=== PATIENT | male | born 2000 | race American Indian/Alaskan Native ===

== ENCOUNTER 2022-01-16 22:25 | Emergency (ER) | payer MEDICAID, OTHER | END 2022-01-17 03:30 | LOC: JD.ED 22:25 | DX: F32.A Depression, unspecified (principal); F29 Unspecified psychosis not due to a substance or known physiological condition; R45.851 Suicidal ideations; F17.210 Nicotine dependence, cigarettes, uncomplicated | CPT/HCPCS: 36415; 80053; 80143; 80179; 80306; 80307; 81001; 84443; 85025; 99284 ==

== ENCOUNTER 2022-01-18 12:40 | Emergency (ER) | payer OTHER ==
[2022-01-18] MEDS ORDERED: OLANZapine 10 MG Vial IM ONE (18:41)
== END 2022-01-18 19:55 | disposition home or self-care (01) ==
LOC: JD.ED 12:40
DX: R44.0 Auditory hallucinations (principal); F17.210 Nicotine dependence, cigarettes, uncomplicated; Z86.16 Personal history of COVID-19
CPT/HCPCS: 96372; 99284; J3490

== ENCOUNTER 2022-05-01 21:24 | Emergency (ER) | payer OTHER ==
[2022-05-02] MEDS ORDERED: ARIPiprazole 5 MG Tab PO ONE (11:20)
== END 2022-05-02 15:14 ==
LOC: JD.ED 21:24
DX: F20.9 Schizophrenia, unspecified (principal); Z79.899 Other long term (current) drug therapy; Z20.822 Contact with and (suspected) exposure to COVID-19
CPT/HCPCS: 36415; 80053; 80143; 80179; 80306; 80307; 81003; 84443; 85025; 85610; 85730; 86140; 99284; 99285; U0002

== ENCOUNTER 2022-11-30 20:28 | Emergency (ER) | payer OTHER ==
[2022-11-30 21:19] LABS: BASOPHILS ABSOLUTE AUTO 0.03 K/mm3 (0.01-0.08); BASOPHILS PERCENT AUTO 0.3 % (0.1-1.2); EOSINOPHILS ABSOLUTE AUTO 0.15 K/mm3 (0.04-0.54); EOSINOPHILS PERCENT AUTO 1.6 (0.8-7.0); HEMOGLOBIN 14.7 gm/dl (13.7-17.5); IMMATURE GRAN ABSOLUTE AUTO 0.03 K/mm3 (0.00-0.10); IMMATURE GRAN PERCENT AUTO 0.3 % (<=1.0); LYMPHOCYTES ABSOLUTE AUTO 1.83 K/mm3 (1.32-3.57); LYMPHOCYTES PERCENT AUTO 19.2 % (21.8-53.1); MEAN CORPUSCULAR HEMOGLOBIN 29.5 pg (25.7-32.2); MEAN CORPUSCULAR HGB CONC 34.2 g/dl (32.2-35.5); MEAN CORPUSCULAR VOLUME 86.2 fl (79.0-92.2); MEAN PLATELET VOLUME 11.6 fl (9.4-12.3); MONOCYTES ABSOLUTE AUTO 1.23 K/mm3 (0.30-0.82); MONOCYTES PERCENT AUTO 12.9 % (5.3-12.2); NEUTROPHILS ABSOLUTE AUTO 6.25 K/mm3 (1.78-5.38); NEUTROPHILS PERCENT AUTO 65.7 % (34.0-67.9); PLATELET COUNT,PLT 216 K/mm3 (163-337); RED BLOOD CELL COUNT 4.99 M/mm3 (4.63-6.08); WHITE BLOOD CELL COUNT,WBC 9.52 K/mm3 (4.23-9.07)
[2022-11-30 21:51] LABS: ANION GAP 13.3 (5-15); BILIRUBIN TOTAL 0.6 mg/dL (0.2-1.0); BUN/CREATININE RATIO 13.8 (14-18); CALCIUM 8.5 mg/dL (8.5-10.1); CREATININE 0.8 mg/dL (0.7-1.3); EST CRCL DRUG DOSING (CG) 138.94 mL/min; MAGNESIUM 1.9 mg/dL (1.8-2.4); POTASSIUM,K 3.3 mEq/L (3.5-5.1); PROTEIN TOTAL,TP 8.1 g/dl (6.4-8.2); TSH 0.546 uIU/mL (0.358-3.74)
== END 2022-11-30 23:25 | disposition home or self-care (01) ==
LOC: JD.ED 20:28
DX: F20.1 Disorganized schizophrenia (principal); Z86.16 Personal history of COVID-19
CPT/HCPCS: 36415; 80053; 83735; 84443; 85025; 99283; 99284